=== PATIENT | male | born 1960 | race Caucasian/White ===

== ENCOUNTER 2016-11-30 08:48 | Emergency (ER) | payer OTHER ==
[2016-11-30 09:36] VITALS: BP 132/90
--- NOTE | 2016-11-30 09:47 | UC ---
Skin Complaint HPI - HPI Summary HPI Summary: STEPPED ON A SLIVER OF WOOD 2 DAYS AGO - LEFT GREAT TOE. NOT SURE IF THERE IS STILL WOOD EMBEDDED. PT TRIED TO EXPLORE WITH A NEEDLE AT HOME. TOE HAS BECOME RED, SWOLLEN AND TENDER. LAST TETANUS 05/29/16. - History of Current Complaint Chief Complaint: UCLowerExtremity Time Seen by Provider: 11/30/16 09:40 Stated Complaint: PUNCTURE WOUND TO FOOT Hx Obtained From: Patient Onset/Duration: Sudden Onset, Lasting Days, Still Present Timing: Constant Onset Severity: Moderate Current Severity: Moderate Pain Intensity: 9 Pain Scale Used: 0-10 Numeric Location: Discrete - LEFT GREAT TOE Character: Swelling, Pain, Redness Aggravating: Touch Alleviating: Nothing Associated Signs & Symptoms: Positive: Tenderness - Allergy/Home Medications Allergies/Adverse Reactions: Allergies Allergy/AdvReac Type Severity Reaction Status Date / Time No Known Allergies Allergy Verified 11/30/16 09:36 Review of Systems Constitutional: Negative Skin: Other - ERYTHEMA Respiratory: Negative Cardiovascular: Negative Gastrointestinal: Negative Musculoskeletal: Edema All Other Systems Reviewed And Are Negative: Yes PMH/Surg Hx/FS Hx/Imm Hx Cardiovascular History Of: Denies: Pacemaker/ICD GI/ History Of: Reports: Kidney Stones - PASSED ON OWN, WAS SEEN [place] [facility] [place] - Surgical History Surgical History: Yes Surgery Procedure, Year, and Place: RT KNEE - Family History Known Family History: Positive: Hypertension - Social History Alcohol Use: Occasionally Substance Use Type: None Smoking Status (MU): Never Smoked Tobacco - Immunization History Most Recent Tetanus Shot: UTD Physical Exam Triage Information Reviewed: Yes Appearance: Well-Appearing, No Pain Distress, Well-Nourished Vital Signs: Initial Vital Signs Temp 98.5 F 11/30/16 09:31 Pulse 60 11/30/16 09:31 Resp 20 11/30/16 09:31 BP 132/90 11/30/16 09:31 Pulse Ox 100 11/30/16 09:31 Vital Signs Reviewed: Yes Eyes: Positive: Conjunctiva Clear ENT: Positive: Hearing grossly normal Neck: Positive: Supple Respiratory: Positive: No respiratory distress, No accessory muscle use Cardiovascular: Positive: Pulses Normal Abdomen Description: Positive: Soft Musculoskeletal: Positive: Edema @ - LEFT GREAT TOE EDEMATOUS AND ERYTHEMATOUS. TTP. Neurological: Positive: Alert Psychological: Positive: Age Appropriate Behavior Skin: Positive: Other - 5MM SKIN DEFECT VENTRAL ASPECT OF LEFT GREAT TOE. Negative: rashes Course/Dx - Course Course Of Treatment: LEFT GREAT TOE ANESTHETIZED VIA DIGITAL BLOCK USING 2% LIDOCAINE. WOUND EXPLORED WITH SPLINTER FORCEPS. NO FB LOCATED. WOUND DRESSED. - Diagnoses Provider Diagnoses: 1. PUNCTURE WOUND LEFT GREAT TOE. 2. CELLULITIS LEFT GREAT TOE Discharge - Discharge Plan Condition: Stable Disposition: HOME Prescriptions: Amoxicillin/Clavulanate TAB* [Augmentin TAB 875*] 875 mg PO BID #20 tab Hydrocodone-Acetaminophen [Lorcet 5-325 mg] 1 tab PO QID PRN #20 tab MDD 4 PRN Reason: Pain Patient Education Materials: Puncture Wound (ED), Cellulitis (ED) Referrals: Kyle Kingsley MD [Medical Doctor] - If Needed Tim Hogan MD [Primary Care Provider] - If Needed Additional Instructions: WARM/HOT COMPRESSES/SOAKS AT LEAST 4 TIMES DAILY APPLY THIN LAYER ANTIBIOTIC OINTMENT UNDER BANDAGE FOR FIRST 2-3 DAYS ONLY. CHANGE BANDAGE DAILY AND NEEDED IF IT BECOMES SOILED OR WET. SEEK FOLLOW-UP IF YOU DEVELOP SPREADING REDNESS OF THE SKIN, PURULENT DRAINAGE, FEVER, INCREASED PAIN OR ANY OTHER CONCERNING SYMPTOMS.
[2016-11-30] MEDS ORDERED: Lidocaine 2% PF * 5 ML VIAL ONE (09:57)
== END 2016-11-30 11:53 | disposition home or self-care (01) ==
LOC: UCEAST 08:48
DX: S90.452A Superficial foreign body, left great toe, initial encounter (principal); W45.8XXA Other foreign body or object entering through skin, initial encounter; Y92.9 Unspecified place or not applicable; L03.032 Cellulitis of left toe
CPT/HCPCS: 10060; 99213; G0463

== ENCOUNTER 2018-08-06 17:30 | Observation (INO) | payer OTHER ==
[2018-08-06] MEDS ORDERED: Morphine INJ** 4 MG/ML 1 ML CARPUJECT IV ONE (17:53)
[2018-08-06] MEDS ORDERED: Ondansetron INJ* 2 MG/ML VIAL IV ONE (17:54)
[2018-08-06] MEDS ORDERED: Ketorolac INJ* 30 MG/ML 1 ML VIAL IV PUSH ONE (17:54)
[2018-08-06] MEDS ORDERED: Morphine INJ* 2 MG/ML 1 ML SYRINGE (TWO MG - NEW SYRINGE VERSION) ONE (17:58)
[2018-08-06] MEDS ORDERED: Morphine INJ* 2 MG/ML 1 ML SYRINGE (TWO MG - NEW SYRINGE VERSION) IV ONE (17:59)
--- NOTE | 2018-08-06 18:47 | ED ---
GI/ HPI - HPI Summary HPI Summary: 57-year-old male presents with left-sided flank pain and vomiting for the past couple hours. He states the pain is severe. He also has been nauseous and vomiting. No diarrhea. Did have some Indian food earlier today. Had 2 normal bowel movements prior to the pain starting. No urinary symptoms. No fever. admits to dysuria 2 weeks ago for a day. Does have a history of kidney stones. he admits to Shortness breath due to the pain. No chest pain. No previous belly surgeries. Has no medical conditions. - History of Current Complaint Chief Complaint: EDAbdPain Time Seen by Provider: 08/06/18 17:45 Stated Complaint: LT SIDE ABD PAIN,N/V Pain Intensity: 9 - Allergy/Home Medications Allergies/Adverse Reactions: Allergies Allergy/AdvReac Type Severity Reaction Status Date / Time No Known Allergies Allergy Verified 08/06/18 17:34 Home Medications: Home Medications ALPRAZolam [Alprazolam] 0.5 mg PO TID PRN 08/06/18 [History Confirmed 08/06/18] PMH/Surg Hx/FS Hx/Imm Hx Endocrine/Hematology History: Denies: Hx Anticoagulant Therapy Cardiovascular History: Denies: Hx Pacemaker/ICD Respiratory History: Reports: Other Respiratory Problems/Disorders - ALLERGIES, CHRONIC SINUSITIS Comment Only: Hx Sleep Apnea - SNORES History: Reports: Hx Kidney Stones - PASSED ON OWN, WAS SEEN AT [facility] [place] 2007 Musculoskeletal History: Reports: Hx Bursitis - Hx OF RT SHOULDER, YEARS AGO Sensory History: Denies: Hx Hearing Aid Psychiatric History: Denies: Hx Panic Disorder - Surgical History Surgery Procedure, Year, and Place: 07/08 achillies left foot,. 2013 knee Hx Anesthesia Reactions: No Infectious Disease History: No Infectious Disease History: Denies: Traveled Outside the [place] in Last 30 Days - Family History Known Family History: Positive: Hypertension - Social History Alcohol Use: Occasionally Substance Use Type: Reports: None Smoking Status (MU): Never Smoked Tobacco Review of Systems Negative: Fever Negative: Chest Pain Negative: Shortness Of Breath Positive: Abdominal Pain, Vomiting, Nausea. Negative: Diarrhea Positive: flank pain All Other Systems Reviewed And Are Negative: Yes Physical Exam Triage Information Reviewed: Yes Vital Signs On Initial Exam: Initial Vitals Temp Pulse Resp BP Pulse Ox 97.9 F 70 20 138/87 99 08/06/18 17:31 08/06/18 17:31 08/06/18 17:31 08/06/18 17:31 08/06/18 17:31 Vital Signs Reviewed: Yes Appearance: Positive: Well-Appearing Skin: Positive: Warm, Dry Head/Face: Positive: Normal Head/Face Inspection Eyes: Positive: Normal, Conjunctiva Clear ENT: Positive: Pharynx normal Respiratory/Lung Sounds: Positive: Clear to Auscultation, Breath Sounds Present Cardiovascular: Positive: Normal, RRR Abdomen Description: Positive: Soft, CVA Tenderness (L), Other: - tenderness LUQ Bowel Sounds: Positive: Present Musculoskeletal: Positive: Normal Neurological: Positive: Normal Psychiatric: Positive: Normal Diagnostics - Vital Signs Vital Signs Temp Pulse Resp BP Pulse Ox 08/06/18 18:20 58 147/79 100 08/06/18 18:15 59 143/75 100 08/06/18 18:02 14 08/06/18 18:00 63 100 08/06/18 17:50 60 144/119 100 08/06/18 17:31 97.9 F 70 20 138/87 99 - Laboratory Result Diagrams: 08/06/18 18:51 08/06/18 18:51 Lab Statement: Any lab studies that have been ordered have been reviewed, and results considered in the medical decision making process. - Radiology abd Xray Interpretation: Positive (See Comments) - IMPRESSION: 1. Mildly obstructing 9 mm calculus left UPJ. 2. Nonobstructing left renal calculus. Radiology Interpretation Completed By: Radiologist - EKG No standard instances Cardiac Rate: Bradycardia EKG Rhythm: Sinus Bradycardia EKG Interpretation: sinus bradycardia Re-Evaluation - Re-Evaluation First Eval Re-Evaluation Time: 20:03 Change: Improved Comment: pain not completely gone Second Eval Re-Evaluation Time: 20:53 Change: Improved Comment: pain is now manageable, patient states is anxious GIGU Course/Dx - Course Course Of Treatment: 57-year-old male presents with left-sided flank pain and vomiting for the past couple hours. He states the pain is severe. He also has been nauseous and vomiting. No diarrhea. Did have some Indian food earlier today. Had 2 normal bowel movements prior to the pain starting. No urinary symptoms. No fever. admits to dysuria 2 weeks ago for a day. Does have a history of kidney stones. he admits to Shortness breath due to the pain. No chest pain. No previous belly surgeries. Has no medical conditions. on exam tenderness LUQ and left CVA. wbc 13. Cr 1.25. CT shows 9mm stone at UPJ. spoke with dr flowers and recommends that get KUB. dr flowers looked at CT and recommends admission for pain control and will place stent tomorrow. discussed with patient and agrees to admission. dr samuel agrees to admit. - Diagnoses Differential Diagnoses - Male: Pyelonephritis, Ureteral Calculi, Urinary Tract Infection Provider Diagnoses: Ureteral stone - Physician Notifications Discussed Care Of Patient With: Herb Flowers Time Discussed With Above Provider: 21:02 - get KUB, will look at CT Discharge - Sign-Out/Discharge Documenting (check all that apply): Patient Departure - Discharge Plan Condition: Good Disposition: ADMITTED TO [facility] - Billing Disposition and Condition Condition: GOOD Disposition: Admitted to [facility]
[2018-08-06 18:57] LABS: ABS Basophils 0 10^3/ul (0-0.2); ABS Eosinophils 0 10^3/ul (0-0.6); ABS Monocytes 0.7 10^3/ul (0-0.8); ABS Neutrophils 11.6 10^3/ul (1.5-7.7); ABS Nucleated RBC 0 10^3/ul; Eosinophil % 0.3 % (0-6); Hematocrit 42 % (42-52); Hemoglobin 14.2 g/dl (14.0-18.0); Lymphocyte % 7.4 % (25-47); Mean Corpuscular HGB Conc 34 g/dl (31-36); Mean Corpuscular Hemoglobin 32 pg (27-31); Mean Corpuscular Volume 93 fL (80-94); Nucleated Red Blood Cells % 0.1; Platelet Count 192 10^3/ul (150-450); Red Blood Count 4.45 10^6/ul (4.00-5.40); Red Cell Distribution Width 13 % (10.5-15); White Blood Count 13.3 10^3/ul (3.5-10.8)
--- NOTE | 2018-08-06 19:30 | RAD ---
EXAM: CT Abdomen and Pelvis Without Intravenous Contrast CLINICAL HISTORY: 57 years old, male; Pain; Abdominal pain; Localized; Left upper quadrant (luq); Additional info: Left flank pain, luq pain TECHNIQUE: Axial computed tomography images of the abdomen and pelvis without intravenous contrast. All CT scans at this facility use at least one of these dose optimization techniques: automated exposure control; mA and/or kV adjustment per patient size (includes targeted exams where dose is matched to clinical indication); or iterative reconstruction. Coronal and sagittal reformatted images were created and reviewed. COMPARISON: No relevant prior studies available. FINDINGS: Lung bases: Normal. No mass. No consolidation. ABDOMEN: Liver: Normal. Normal size. No masses. Gallbladder and bile ducts: Normal. No radiopaque calculi. No ductal dilation. Pancreas: Normal. No ductal dilation. Spleen: Normal. No splenomegaly. Adrenals: Normal. No mass. Kidneys and ureters: Mild left perinephric stranding with mild pelvocaliectasis which terminates at a 0.9 cm calculus at the left UVJ. Nonobstructing left renal calculus in the midpole measures 0.4 cm. No right renal calculi or pelvocaliectasis. Stomach and bowel: Incompletely distended grossly normal stomach. Normal caliber small bowel. No colonic masses or segmental wall thickening. PELVIS: Appendix: Normal caliber appendix without wall thickening or adjacent inflammation. Bladder: Thin-walled bladder with no focal nodularity, perivesicular stranding, or calcifications. No stones. Reproductive: Normal sized prostate. Normal seminal vesicles. ABDOMEN and PELVIS: Intraperitoneal space: Normal. No pneumoperitoneum. No ascities. Bones/joints: The spine demonstrates mild degenerative changes at multiple levels. No fractures. No suspicious bone lesions. Soft tissues: Normal. No hernias. Vasculature: Normal. No abdominal aortic aneurysm. Lymph nodes: Normal. No enlarged lymph nodes. IMPRESSION: 1. Mildly obstructing 9 mm calculus left UPJ. 2. Nonobstructing left renal calculus.
[2018-08-06] MEDS ORDERED: HYDROmorphone INJ* 2 MG/ML CARPUJECT SYRINGE IV SLOW PU ONE (19:31)
[2018-08-06] MEDS ORDERED: NS 0.9% 1000 ML* 1,000 ML IV ONE ×2 (20:17→20:52)
[2018-08-06 20:43] LABS: Urine Appearance Cloudy; Urine Blood 3+ (Negative); Urine Color Yellow; Urine Ketones Trace (Negative); Urine Protein 1+(30 mg/dL) (Negative); Urine Red Blood Cell 3+(>10/hpf) (Absent); Urine Specific Gravity 1.025 (1.010-1.030); Urine Urobilinogen Negative (Negative); Urine White Blood Cell Trace(0-5/hpf) (Absent)
[2018-08-06] MEDS ORDERED: Tamsulosin CAP* 0.4 MG PO ONE (22:40)
[2018-08-06] MEDS ORDERED: Ondansetron INJ* 2 MG/ML VIAL IV PRN (23:01)
[2018-08-06] MEDS ORDERED: ALPRAZolam TAB* 0.5 MG PO PRN (23:03)
[2018-08-06] MEDS ORDERED: Heparin VIAL(*) 5000 UNITS/ML VIAL (FIVE THOUSAND) SUBCUT ONE (23:32)
[2018-08-06] MEDS ORDERED: cefTRIAXone(*) 1 GM in NS 0.9% 50 ML* 50 ML IVPB SCH (23:45)
[2018-08-07] MEDS ORDERED: NS 0.9% 1000 ML* 1,000 ML IV SCH (00:30)
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
[2018-08-07] MEDS: Morphine INJ* 2 MG/ML 1 ML SYRINGE (TWO MG - NEW SYRINGE VERSION) IV PRN ×2 (04:26→06:23)
[2018-08-07 06:09] LABS: ABS Basophils 0 10^3/ul (0-0.2); ABS Eosinophils 0 10^3/ul (0-0.6); ABS Lymphocytes 1.8 10^3/ul (1.0-4.8); ABS Neutrophils 8.4 10^3/ul (1.5-7.7); ABS Nucleated RBC 0 10^3/ul; Eosinophil % 0.3 % (0-6); Hematocrit 41 % (42-52); Hemoglobin 13.9 g/dl (14.0-18.0); Lymphocyte % 15.7 % (25-47); Mean Corpuscular HGB Conc 34 g/dl (31-36); Mean Corpuscular Hemoglobin 32 pg (27-31); Mean Corpuscular Volume 94 fL (80-94); Mean Platelet Volume 9.4 um3 (7.4-10.4); Nucleated Red Blood Cells % 0; Platelet Count 181 10^3/ul (150-450); Red Blood Count 4.35 10^6/ul (4.00-5.40); Red Cell Distribution Width 13 % (10.5-15); White Blood Count 11.2 10^3/ul (3.5-10.8)
[2018-08-07 06:32] LABS: EGFR Non-African American 46.4 (>60)
--- NOTE | 2018-08-07 07:43 | RAD ---
INDICATION: Kidney stones COMPARISON: None TECHNIQUE: A single AP view of the abdomen was obtained. FINDINGS: Overlying the lower pole collecting system of the left kidney there is a 1 cm focal calcification. Round calcifications at the left of midline pelvis are morphologically more compatible with phleboliths. Incidentally noted is a large amount of stool throughout the colon particularly the cecum. IMPRESSION:THERE IS AT LEAST ONE 9 MM RENAL CALCULUS OVERLYING THE LOWER POLE LEFT URETEROPELVIC JUNCTION. R0
[2018-08-07] MEDS ORDERED: Morphine VIAL* 10 MG/ML 1 ML VIAL ONE (09:26)
[2018-08-07] MEDS ORDERED: ALPRAZolam TAB* 0.25 MG PO ONE (10:00)
[2018-08-07] MEDS ORDERED: Gentamicin ADULT (*) 160 MG in NS 0.9% 100 ML* 100 ML IVPB ONE (10:15)
[2018-08-07] MEDS ORDERED: Dexamethasone IV* 4 MG/ML 1 ML (4 MG) ONE (12:09)
[2018-08-07] MEDS ORDERED: Propofol* 10 MG/ML 20 ML BTL IV PUSH ONE (12:09)
[2018-08-07] MEDS ORDERED: Ondansetron INJ* 2 MG/ML VIAL ONE (12:09)
[2018-08-07] MEDS ORDERED: fentaNYL* 50 MCG/ML 2 ML VIAL (100 MCG VIAL) ONE ×2 (12:09→13:25)
[2018-08-07] MEDS ORDERED: Lidocaine 2% PF * 5 ML VIAL ONE (12:09)
[2018-08-07] MEDS ORDERED: Midazolam* 1 MG/ML 5 ML VIAL (5 MG) ONE (12:09)
[2018-08-07] MEDS ORDERED: KETAMINE HCL* 50 MG/ML 10 ML VIAL ONE (12:09)
[2018-08-07] MEDS ORDERED: Ketorolac INJ* 30 MG/ML 1 ML VIAL ONE (12:09)
[2018-08-07] MEDS ORDERED: Iohexol 180 (CONTRAST) 10 ML SDV IV ONE (12:39)
[2018-08-07] MEDS ORDERED: Naloxone* 0.4 MG/ML 1 ML VIAL IV PRN (13:06)
[2018-08-07] MEDS ORDERED: fentaNYL* 50 MCG/ML 2 ML VIAL (100 MCG VIAL) IV PRN (13:06)
[2018-08-07] MEDS ORDERED: Ondansetron INJ* 2 MG/ML VIAL IV PRN (13:06)
[2018-08-07] MEDS ORDERED: Furosemide IV* 10 MG/ML 2 ML VIAL (20 MG) ONE (13:16)
[2018-08-07 14:35] VITALS: BP 122/68
--- NOTE | 2018-08-07 16:39 | RAD ---
INDICATION: Postop ureteral stent placement. COMPARISON: Comparison is made with a prior CT of the abdomen and pelvis and KUB film from August 06, 2018. TECHNIQUE: A single frontal supine film of the abdomen was obtained. FINDINGS: The small bowel and colon appear nondistended. There is a ureteral stent present on the left side which demonstrates normal course. The previously noted left ureteropelvic junction calculus is not well-defined. IMPRESSION: STATUS POST LEFT URETERAL STENT PLACEMENT.
--- NOTE | 2018-08-07 22:22 | OP ---
CC: Dr. Pricila Santos * DATE OF OPERATION: 08/07/18 - ROOM #340 DATE OF : 64 SURGEON: Herb Jacobs MD ANESTHESIOLOGIST: Dr. Thompson. ANESTHESIA: General. PRE-OP DIAGNOSIS: Obstructing calculus, left ureteropelvic junction. POST-OP DIAGNOSIS: Obstructing calculus, left ureteropelvic junction. OPERATIVE PROCEDURE: 1. Shock-wave lithotripsy of left renal calculus. 2. Cystoscopy, left retrograde pyelogram, and left stent insertion. OPERATIVE FINDINGS: 1. Mild to moderately enlarged prostate. 2. Normal-appearing bladder. 3. 9 to 10 mm obstructing calculus, left ureteropelvic junction with left hydronephrosis. INDICATIONS: Efrain Keys is a 57-year-old gentleman who presented to the emergency room with left flank pain and nausea. He was noted to have an obstructing calculus at the left ureteropelvic junction and continued to require intravenous pain medication overnight. He is now being brought in for shock-wave lithotripsy and left stent insertion. COMPLICATIONS: None. POSTOPERATIVE CONDITION: Stable. STENT USED: 7-Burkinan stent left ureter. DESCRIPTION OF PROCEDURE: After induction of general anesthesia, the patient was placed on the lithotripsy table in supine position. The calculus, which was visualized on fluoroscopy, was targeted with shock-waves at a rate of 60 shocks per minute. Intermittent fluoroscopy revealed good localization and fragmentation and a total of 2400 shocks were administered. Next, cystoscopy was performed. The urethra was normal. The prostate was mild to moderately enlarged. The bladder was examined and appeared unremarkable. A guidewire was introduced into the left ureter. Retrograde pyelogram revealed fullness of the left collecting system, consistent with partial obstruction, and a 7-Burkinan stent was introduced and positioned under fluoroscopy with good proximal and distal positioning obtained. The bladder was emptied. The patient tolerated the procedure satisfactorily and was transferred back to the recovery area in stable condition. [id number]/[facility] #: [id number] MTDD
--- NOTE | 2018-08-07 23:29 | DS ---
CC: Dr. Pricila Santos * DISCHARGE SUMMARY: DATE OF ADMISSION: 08/06/18 DATE OF DISCHARGE: 08/07/18 PRIMARY CARE PROVIDER: Pricila Santos MD. UROLOGIST: Dr. Jacobs. DISCHARGE DIAGNOSES: 1. Nephrolithiasis. 2. Status post cystoscopy with lithotripsy and stent placement. 3. Acute kidney injury. SECONDARY DIAGNOSIS: Anxiety. MEDICATION LIST: 1. Xanax 0.5 mg p.o. t.i.d. as needed for anxiety. New medications: 1. Acetaminophen 650 mg p.o. q.4 hours p.r.n. mild pain maximum dose 3900 mg. 2. Oxycodone 5 mg p.o. q.4 hours p.r.n. moderate to severe pain MDD 6 tablets dispensed 20, no refills. [facility] Prescription Monitor Program was consulted and patient has received a prescription for alprazolam on 07/03/18 reference number is [id number]. 3. Tamsulosin 0.4 mg p.o. at bedtime. HOSPITAL COURSE: Mr. Keys is a 57-year-old male with past medical history as stated above that presented to the emergency room with complaints of left- sided pain found to have mild left perinephric stranding with mild pelvocaliectasis, which terminates at 0.9 cm calculus at the left UPJ. The patient was admitted as observation for pain control and he was seen by urology and taken to the OR for cystoscopy with lithotripsy and stent placement. Dr. Jacobs recommended adding Flomax to his regimen. Please note that the patient's creatinine on the day of discharge was 1.[address] Jacobs, we will need to follow his creatinine as outpatient. The patient's urinalysis showed only hematuria, but no signs of infection so at this point it is now recommended for him to have an antibiotic. He did receive gentamicin perioperatively. The patient is medically stable for discharge at this time, to follow up with Dr. Jacobs this week. PHYSICAL EXAMINATION: Vital Signs: Temperature 98.8, heart rate is 65, respiratory rate is 12, oxygen saturation is 96% on room air, blood pressure is 122/68. HEENT: Pupils are equal. Moist mucous membranes. Extremities: No edema. Neuro: He is alert and oriented x3. Able to move all 4 extremities. DIET: Regular diet. ACTIVITIES: As tolerated. The patient was advised to avoid excessive physical exertion until he follows up with Dr. Jacobs. STATUS IN THE HOSPITAL: Observation. Please keep in mind that this is a summarized version of this patient's hospital stay. If you need more information, please feel free to call me at or please obtain the full medical records. The patient's was present at bedside during my evaluation and her questions were answered. TIME SPENT: Approximately 40 minutes was spent to complete this discharge. [id number]/[facility] #: [id number] MTDD
== END 2018-08-07 15:30 | disposition home or self-care (01) ==
LOC: ED 17:30 → SSU 22:17
PROVIDERS: ADMIT Internal Medicine; ATTEND Internal Medicine
DX: N20.0 Calculus of kidney (principal); N17.9 Acute kidney failure, unspecified; R10.84 Generalized abdominal pain
CPT/HCPCS: 36415; 74018; 74176; 80048; 80053; 81003; 81015; 83690; 84484; 85025; 86140; 87086; 93005; 96374; 96375; 99284; A9270-GY; C1876; G0378; J0696; J1100; J1170; J1580; J1644; J1885; J1940; J2250; J2270; J2405; J2704; J3010

== ENCOUNTER 2018-10-02 09:48 | Day surgery (SDC) | payer OTHER ==
[~2018-10-02 09:48] MED LIST: Buffered Lidocaine 0.9% SYRIN* 5 ML/SYR SYRINGE INTRADERM ONE; Famotidine IV* 10 MG/ML 2 ML (20 mg) IV ONE
[2018-10-02] MEDS ORDERED: Famotidine IV* 10 MG/ML 2 ML (20 mg) ONE (09:50)
[2018-10-02] MEDS ORDERED: cefTRIAXone(*) 2 GM ADDV.VIAL IVPB ONE (09:50)
[2018-10-02] MEDS ORDERED: Morphine VIAL* 10 MG/ML 1 ML VIAL ONE (10:39)
[2018-10-02] MEDS ORDERED: Dexamethasone IV* 4 MG/ML 1 ML (4 MG) ONE (11:42)
[2018-10-02] MEDS ORDERED: Ondansetron INJ* 2 MG/ML VIAL ONE (11:42)
[2018-10-02] MEDS ORDERED: Lidocaine 2% PF * 5 ML VIAL ONE (11:42)
[2018-10-02] MEDS ORDERED: Propofol* 10 MG/ML 20 ML BTL IV PUSH ONE (11:42)
[2018-10-02] MEDS ORDERED: Ketorolac INJ* 30 MG/ML 1 ML VIAL ONE (11:42)
[2018-10-02] MEDS ORDERED: fentaNYL* 50 MCG/ML 2 ML VIAL (100 MCG VIAL) ONE (11:43)
[2018-10-02] MEDS ORDERED: KETAMINE HCL* 50 MG/ML 10 ML VIAL ONE (11:43)
[2018-10-02] MEDS ORDERED: Midazolam* 1 MG/ML 5 ML VIAL (5 MG) ONE (11:43)
[2018-10-02] MEDS ORDERED: EPHEDrine (Pressors)* 50 MG/ML VIAL ONE (13:30)
[2018-10-02 15:12] VITALS: BP 150/83
--- NOTE | 2018-10-03 04:48 | OP ---
CC: Dr. Pricila Santos * DATE OF OPERATION: 10/02/18 - [facility] DATE OF : 64 SURGEON: Herb Jacobs MD ANESTHESIOLOGIST: Dr. Thompson ANESTHESIA: General. PRE-OP DIAGNOSIS: Left renal calculi. POST-OP DIAGNOSIS: Left renal calculi. OPERATIVE PROCEDURE: 1. Shockwave lithotripsy of left renal calculi. 2. Cystoscopy and left stent removal. INDICATIONS: Efrain Keys is a 58-year-old gentleman who had initially been evaluated and treated for a large obstructing calculus at the left ureteropelvic junction. He subsequently underwent ureteroscopy and laser lithotripsy for obstructing ureteral fragments and at that time was noted to have some small residual fragments in the left kidney. He is now being brought in for shockwave lithotripsy of these residual fragments as well as left stent removal. COMPLICATIONS: None. POSTOPERATIVE CONDITION: Stable. DESCRIPTION OF PROCEDURE: After induction of general anesthesia, the patient was placed on the lithotripsy table in the supine position. There was approximately a 4-mm fragment in the lower pole of the left kidney with an additional 2-mm fragment adjacent to it. Using fluoroscopy, these were localized and shockwave lithotripsy was commenced at a rate of 60 shocks per minute. After the initial 300 shocks, there was a pause in lithotripsy for several minutes in an effort to minimize any potential trauma to the kidney. Lithotripsy was then resumed and periodic imaging revealed good localization and fragmentation. A total of 2400 shocks were administered. Next, the patient was placed in dorsal lithotomy position and cystoscopy was performed. The stent was seen exiting from the left orifice and was removed intact without difficulty. The bladder was emptied. The patient tolerated the procedure satisfactorily and was transferred back to the recovery area in stable condition. [id number] #: [id number] [facility]ITAL[facility]
== END 2018-10-02 15:37 | disposition home or self-care (01) ==
LOC: OR 09:48
PROVIDERS: ATTEND Urology
DX: N20.0 Calculus of kidney (principal); F41.9 Anxiety disorder, unspecified
CPT/HCPCS: 74018; J0696; J1100; J1885; J2250; J2270; J2405; J2704; J3010